=== PATIENT | female | born 1995 | race African-American/Black ===

== ENCOUNTER 2018-10-19 03:03 | Emergency (ER) | payer MEDICARE ==
[~2018-10-19] VITALS: Ht 162.6 cm; Wt 123.8 kg
--- OUTSIDE RECORDS SUMMARY | 2018-10-19 03:06 | XMS REPORT | Clinical Summary ---
Author Author [facility] [employer] [facility] [employer] Address Unknown Phone Unavailable Care Team Providers Care Rn Lab Name Role Phone Asked, No Pcp PCP Unavailable Allergies No Known Allergies Medications End Date Status Medication Sig Dispensed Refills Start Date 02/07/2018 amoxicillin-pot Take 1 tablet 20 tablet 0 clavulanate (AUGMENTIN) by mouth 2 8 875-125 mg per tablet (two) times a day for 10 days. Active Problems Not on file Encounters Care Team Description Date Type Specialty Kodi Riojas MD Strep throat exposure (Primary Dx); Rhinorrhea 01/27/2018 Emergency Emergency Medicine - 01/28/2018 after 10/18/2017 Social History Date Tobacco Use Types Packs/Day Years Used Never Smoker Smokeless Tobacco: Never Used Alcohol Use Drinks/Week oz/Week Comments No Sex Assigned at Date Recorded Not on file Industry Job Start Date Occupation Not on file Not on file Not on file Travel End Travel History Travel Start No recent travel history available. Last Filed Vital Signs Time Taken Vital Sign Reading 01/28/2018 12:26 AM CDT Blood Pressure 120/76 01/28/2018 12:26 AM CDT Pulse 97 01/28/2018 12:26 AM CDT Temperature 36.3 C (97.3 F) 01/28/2018 12:26 AM CDT Respiratory Rate 18 01/28/2018 12:26 AM CDT Oxygen Saturation 98% - Inhaled Oxygen - Concentration - Weight - 01/27/2018 11:07 PM CDT Height 162.6 cm (5' 4") - Body Mass Index - Plan of Treatment Not on file Results Not on fileafter 10/18/2017 Advance Directives Patient has advance care planning documents on file. For more information, yesica altman contact: Kenn Mccarthy [phone] [place] [address]
--- OUTSIDE RECORDS SUMMARY | 2018-10-19 03:06 | XMS REPORT ---
Author Author [facility] Address Unknown Phone Unavailable Care Team Providers Care Donor Services Manager Name Role Phone Unavailable Unavailable Payers Payer Name Policy Type Policy Number Effective Date Expiration Date Problems This patient has no known problems. Allergies, Adverse Reactions, Alerts Allergy Name Allergy Type Status Severity Reaction(s) Onset Date Inactive Date Treating Clinician Comments No Known Allergies DA Active U 2018-09-30 00:00:00 No Known Allergies DA Active U 2016-05-15 00:00:00 Medications This patient has no known medications.
[2018-10-19 03:29] LABS: BASOPHILS % 0.2 % (0.0-1.0); EOSINOPHILS # (AUTO) 0.3 (0.0-0.4); EOSINOPHILS % 3.5 % (0.0-6.0); HEMATOCRIT 32.6 % (34.2-44.1); HEMOGLOBIN 10.2 g/dL (12.0-16.0); LYMPHOCYTES # (AUTO) 2.8 (1.0-3.2); LYMPHOCYTES % 32.2 % (18.0-39.1); MEAN CORPUSCULAR HEMOGLOBIN 25.8 pg (28-32); MEAN CORPUSCULAR HGB CONC 31.3 g/dL (31-35); MEAN CORPUSCULAR VOLUME 82.5 fL (81-99); MONOCYTES # (AUTO) 0.7 (0.2-0.8); MONOCYTES % 7.4 % (4.4-11.3); NEUTROPHILS # (AUTO) 4.9 (2.1-6.9); NEUTROPHILS % 55.8 % (38.7-80.0); PLATELET COUNT 401 x10e3/uL (140-360); RED BLOOD COUNT 3.95 x10e6/uL (3.6-5.1); RED CELL DISTRIBUTION WIDTH 15.9 % (11.7-14.4)
[2018-10-19 03:34] LABS: INR 1.44; PROTHROMBIN TIME 18.7 seconds (11.9-14.5)
[2018-10-19 03:35] LABS: PARTIAL THROMBOPLASTIN TIME 39.7 seconds (23.8-35.5)
[2018-10-19 03:42] LABS: ALANINE AMINOTRANSFERASE 38 IU/L (0-55); ALBUMIN 3.4 g/dL (3.5-5.0); ALBUMIN/GLOBULIN RATIO 0.9 (0.8-2.0); ALKALINE PHOSPHATASE 100 IU/L (40-150); ANION GAP 15.4 mmol/L (8-16); BLOOD UREA NITROGEN 10 mg/dL (7-26); BUN/CREATININE RATIO 12 (6-25); CARBON DIOXIDE 22 mmol/L (22-29); CHLORIDE 106 mmol/L (98-107); CREATININE, SERUM 0.83 mg/dL (0.57-1.11); EST GLOMERULAR FILTRATION RATE > 60 ML/MIN (60-); GLUCOSE 166 mg/dL (74-118); POTASSIUM 4.4 mmol/L (3.5-5.1); SODIUM 139 mmol/L (136-145)
[2018-10-19] MEDS ORDERED: METFORMIN HCL1000 MG PO (04:03)
[2018-10-19] MEDS ORDERED: XARELTO15 MG PO (04:03)
[2018-10-19] MEDS ORDERED: METOPROLOL TART25 MG PO (04:03)
[2018-10-19 05:27] LABS: CLARITY,URINE CLEAR (CLEAR); COLOR,URINE YELLOW (YELLOW)
[2018-10-19 05:28] LABS: BILIRUBIN,URINE NEGATIVE (NEGATIVE); KETONES,URINE NEGATIVE (NEGATIVE); LEUKOCYTE ESTERASE ,URINE NEGATIVE (NEGATIVE); NITRITE,URINE NEGATIVE (NEGATIVE); PROTEIN,URINE DIPSTICK NEGATIVE (NEGATIVE); URINE UROBILINOGEN 0.2 mg/dL (0.2 - 1)
[2018-10-19 05:30] LABS: EPITHELIAL CELLS,URINE FEW /LPF; RBC,URINE 0-5 /HPF (0-5); WBC,URINE (MAN) 0-5 /HPF (0-5)
[2018-10-19 05:31] LABS: URIC ACID CRYSTALS,URINE FEW (FEW)
--- NOTE | 2018-10-19 06:05 | NUR ---
TRANSFER INITIATED TO [facility]
--- NOTE | 2018-10-19 06:11 | NUR ---
DR. SON SPEAKING TO DR. SUAREZ AT [facility]
--- NOTE | 2018-10-19 06:20 | NUR ---
ADMINISTRATIVE APPROVAL RECEIVED
--- NOTE | 2018-10-19 06:31 | NUR ---
[facility] CALLED FOR PT TRANSPORT
[2018-10-19 06:38] VITALS: BP 120/78
[2018-10-19 06:39] LABS: CREATINE KINASE 56 IU/L (29-168)
== END 2018-10-19 07:00 | disposition short-term general hospital (02) ==
LOC: ER 03:03
DX: K92.1 Melena (principal); R06.00 Dyspnea, unspecified; I26.99 Other pulmonary embolism without acute cor pulmonale
CPT/HCPCS: 36415; 80053; 81001; 82270; 82550; 82553; 83880; 84484; 85025; 85610; 85730; 93005; 99284

== ENCOUNTER 2024-12-11 05:48 | Emergency (ER) | payer OTHER ==
[~2024-12-11] VITALS: Ht 162.6 cm; Wt 124.7 kg
[~2024-12-11 05:48] MED LIST: METFORMIN HCL1000 MG PO; METOPROLOL TART25 MG PO; XARELTO15 MG PO
[2024-12-11 05:55] VITALS: TEMP 98.4
[2024-12-11 06:25] LABS: BASOPHILS % 0.1 % (0.0-1.0); EOSINOPHILS # (AUTO) 0.1 (0.0-0.4); EOSINOPHILS % 0.7 % (0.0-6.0); HEMATOCRIT 41.5 % (34.2-44.1); HEMOGLOBIN 13.6 g/dL (12.0-16.0); LYMPHOCYTES # (AUTO) 2.6 (1.0-3.2); LYMPHOCYTES % 21.9 % (18.0-39.1); MEAN CORPUSCULAR HEMOGLOBIN 27.5 pg (28-32); MEAN CORPUSCULAR HGB CONC 32.8 g/dL (31-35); MEAN CORPUSCULAR VOLUME 83.8 fL (81-99); MONOCYTES # (AUTO) 0.6 (0.2-0.8); MONOCYTES % 5.1 % (4.4-11.3); NEUTROPHILS # (AUTO) 8.5 (2.1-6.9); NEUTROPHILS % 71.4 % (38.7-80.0); PLATELET COUNT 260 x10e3/uL (140-360); RED BLOOD COUNT 4.95 x10e6/uL (3.6-5.1); RED CELL DISTRIBUTION WIDTH 13.6 % (11.7-14.4); WHITE BLOOD COUNT 11.94 x10e3/uL (4.8-10.8)
[2024-12-11 06:30] VITALS: PULSE 105; RESP 16
[2024-12-11] MEDS: Morphine 4mg INJECTION 4 MG/ML INJ IV STA (06:30)
[2024-12-11] MEDS: SODIUM CHLORIDE 0.9% 1000ML 1,000 ML IV STA (06:31)
[2024-12-11] MEDS: ONDANSETRON HCL INJ 2MG/ML 2ML 2 MG/ML VIAL IV STA (06:31)
[2024-12-11 06:32] LABS: INR 0.94; PROTHROMBIN TIME 13.1 seconds (11.9-14.5)
[2024-12-11 06:33] LABS: PARTIAL THROMBOPLASTIN TIME 26.1 seconds (23.8-35.5)
[2024-12-11 06:41] LABS: ALANINE AMINOTRANSFERASE 65 IU/L (0-55); ALBUMIN 3.6 g/dL (3.5-5.0); ALBUMIN/GLOBULIN RATIO 0.9 (0.8-2.0); ALKALINE PHOSPHATASE 94 IU/L (40-150); ANION GAP 15.4 mmol/L (8-16); BILIRUBIN,TOTAL 0.6 mg/dL (0.2-1.2); BLOOD UREA NITROGEN 16 mg/dL (7-26); BUN/CREATININE RATIO 20 (6-25); CALCIUM 8.7 mg/dL (8.4-10.2); CARBON DIOXIDE 23 mmol/L (22-29); CHLORIDE 102 mmol/L (98-107); CREATININE, SERUM 0.82 mg/dL (0.57-1.11); EST GLOMERULAR FILTRATION RATE 99 ML/MIN (>=60); GLUCOSE 210 mg/dL (74-118); LIPASE 25 U/L (8-78); MAGNESIUM 1.8 MG/DL (1.3-2.1); SODIUM 137 mmol/L (136-145); TOTAL PROTEIN 7.5 g/dL (6.5-8.1)
[2024-12-11 06:44] LABS: POTASSIUM 3.4 mmol/L (3.5-5.1)
[2024-12-11 06:47] LABS: TROPONIN I 0.008 ng/mL (0-0.300)
[2024-12-11 07:01] LABS: CLARITY,URINE SL CLOUDY (CLEAR); COLOR,URINE YELLOW (YELLOW); GLUCOSE, URINE NEGATIVE (NEGATIVE); KETONES,URINE NEGATIVE (NEGATIVE); LEUKOCYTE ESTERASE ,URINE NEGATIVE (NEGATIVE); NITRITE,URINE NEGATIVE (NEGATIVE); PH,URINE 5.5 (5 - 7); PROTEIN,URINE DIPSTICK 1+ (NEGATIVE)
[2024-12-11 07:02] LABS: BILIRUBIN,URINE NEGATIVE (NEGATIVE); URINE UROBILINOGEN 0.2 mg/dL (0.2 - 1)
[2024-12-11 07:03] LABS: BACTERIA,URINE MANY /HPF; EPITHELIAL CELLS,URINE MANY /LPF
[2024-12-11] MEDS ORDERED: IOPAMIDOL 370 MG/ML 100 ML INFUS..BTL INJ ONE (07:22)
[2024-12-11] MEDS ORDERED: DICYCLOMINE HCL20 MG PO (08:04)
[2024-12-11] MEDS ORDERED: PANTOPRAZOLE SO40 MG PO (08:04)
[2024-12-11] MEDS ORDERED: ONDANSETRON ODT4 MG PO (08:04)
[2024-12-11 08:16] VITALS: BP 136/77; PULSE 95; RESP 15; O2SAT 100
== END 2024-12-11 08:16 | disposition home or self-care (01) ==
LOC: ER 06:14
DX: R11.2 Nausea with vomiting, unspecified (principal); K29.70 Gastritis, unspecified, without bleeding; R10.33 Periumbilical pain; R10.13 Epigastric pain; E11.65 Type 2 diabetes mellitus with hyperglycemia; Z86.711 Personal history of pulmonary embolism
CPT/HCPCS: 36415; 71045; 74177; 80053; 81001; 83690; 83735; 84484; 84702; 85025; 85610; 85730; 93005; 99284; J2270; J2405; J2470; J7030; Q9967